=== PATIENT | male | born 1985 | race American Indian/Alaskan Native ===

== ENCOUNTER 2017-01-31 18:43 | Emergency (ER) | payer OTHER ==
[2017-01-31 19:03] VITALS: BP 140/93
--- NOTE | 2017-01-31 19:04 | EDM.PDOC ---
ED HPI GENERAL MEDICAL PROBLEM - General Stated Complaint: BACK PAIN Time Seen by Provider: 01/31/17 18:54 - History of Present Illness INITIAL COMMENTS - FREE TEXT/NARRATIVE: 31-year-old male presents emergency room with low back pain. Patient denies any recent trauma with this point. However patient said that 2-1/ 2 weeks history of worsening low back pain. Patient's saw his chiropractor back in [place] about a week ago had some manipulation done this did not help perhaps made it a little bit worse patient saw another physician here [place] several days ago started on Flexeril 3 times daily and ibuprofen 800 mg 3 times a day this is not offering much relief. Patient denies any pain or discomfort down his legs no loss of bowel or bladder control he's had intermittent back problems in the past. - Related Data Allergies Allergy/AdvReac Type Severity Reaction Status Date / Time No Known Allergies Allergy Verified 01/31/17 18:57 Home Meds: Home Meds LORazepam [Ativan] 1 mg PO Q4H PRN #12 tablet 10/19/15 [Rx] cloNIDine [Catapres] 0.1 mg PO Q8H #9 tablet 10/19/15 [Rx] Prednisone [IMW: Prednisone] 10 mg PO Q12H #39 tab 01/31/17 [Rx] Past Medical History - Past Health History Medical/Surgical History: Denies Medical/Surgical History Psychiatric History: Reports: Addiction Social & Family History - Family History Family Medical History: Noncontributory - Tobacco Use Smoking Status *Q: Current Every Day Smoker Years of Tobacco use: 10 Packs/Tins Daily: 0.5 Used Tobacco, but Quit: No Second Hand Smoke Exposure: No - Alcohol Use Days Per Week of Alcohol Use: 7 Number of Drinks Per Day: 2 Total Drinks Per Week: 14 - Recreational Drug Use Recreational Drug Use: Yes Drug Use in Last 12 Months: Yes Recreational Drug Type: Reports: Ativan, Cocaine, Codiene, Ecstasy, Heroin, Marijuana/Hashish, Opium Recreational Drug Use Frequency: Daily Recreational Drug Last Use: today - Living Situation & Occupation Living situation: Reports: Single Occupation: Employed ED ROS GENERAL - Review of Systems Review Of Systems: See Below Constitutional: Reports: No Symptoms HEENT: Reports: No Symptoms Respiratory: Reports: No Symptoms Cardiovascular: Reports: No Symptoms Endocrine: Reports: No Symptoms GI/Abdominal: Reports: No Symptoms : Reports: No Symptoms Musculoskeletal: Reports: Back Pain ED EXAM, GENERAL - Physical Exam Exam: See Below Exam Limited By: No Limitations General Appearance: Alert, No Apparent Distress Head: Atraumatic, Normocephalic Neck: Normal Inspection, Supple, Non-Tender, Full Range of Motion Respiratory/Chest: No Respiratory Distress, Lungs Clear, Normal Breath Sounds, No Accessory Muscle Use, Chest Non-Tender Cardiovascular: Normal Peripheral Pulses, Regular Rate, Rhythm, No Edema GI/Abdominal: Normal Bowel Sounds, Soft, Non-Tender Back Exam: Normal Inspection, Muscle Spasm (In the lower lumbar areas he has some tenderness and some spasm). No: CVA Tenderness (L), CVA Tenderness (R) Extremities: Other (Straight leg raise is negative until about 70 he has localized pain around the SI joint) Course - Re-Assessments/Exams Free Text/Narrative Re-Assessment/Exam: 01/31/17 19:29 Patient is in agreement to take several days off from work be started on prednisone in place of the ibuprofen. Departure - Departure Time of Disposition: 19:31 Disposition: Home, Self-Care 01 Clinical Impression: Low back pain - Discharge Information Prescriptions: Prednisone [IMW: Prednisone] 10 mg PO Q12H #39 tab Additional Instructions: Return to the emergency room with any questions or problems. Return with any worsening symptoms You been started on prednisone this is to replace the ibuprofen did not take the 2 together. Take the prednisone taper as directed. Continue the Flexeril, or cyclobenzaprine. Take this one every 8 hours while not working and one in the evening on the days you must work. Allow 12 hours after using this medication before driving or returning to work. Take the next 3 or 4 days off from work to give you back a chance to rest. Follow-up in the Hospital clinic later this week for recheck and to consider physical therapy to strengthen your back. [phone]
[2017-01-31] MEDS ORDERED: predniSONE 20 MG Tab PO ONE (19:20)
== END 2017-01-31 19:49 | disposition home or self-care (01) ==
LOC: JD.ED 18:43
DX: M54.5 Low back pain (principal); F17.210 Nicotine dependence, cigarettes, uncomplicated
CPT/HCPCS: 99283; A9270

== ENCOUNTER 2017-03-17 04:31 | Emergency (ER) | payer OTHER ==
[2017-03-17 04:41] VITALS: BP 148/94
[2017-03-17] MEDS ORDERED: Acetaminophen/oxyCODONE 325-5 MG Tab PO ONE (05:11)
[2017-03-17] MEDS ORDERED: predniSONE 20 MG Tab PO ONE (05:12)
[2017-03-17] MEDS ORDERED: Indomethacin 25 MG Cap PO ONE (05:12)
--- NOTE | 2017-03-17 05:19 | EDM.PDOC ---
ED HPI GENERAL MEDICAL PROBLEM - General Chief Complaint: Back Pain or Injury Stated Complaint: BACK PAIN Time Seen by Provider: 03/17/17 05:00 Source of Information: Reports: Patient History Limitations: Reports: No Limitations - History of Present Illness INITIAL COMMENTS - FREE TEXT/NARRATIVE: 31-year-old male attends the ED with complaints of diffuse left lower back pain radiating to his but talk area. States that he has low back pain issues off and on but has flared up over the last 2 days. He's been taking a large amount of Motrin over the last 48 hours without much relief. 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 Denies pain radiating below his buttock into his lower extremities. No problems with bowel or bladder function. He is taking Flexeril and states he did get a little bit asleep but awoke at 2: 30 this morning and is unable to fall back asleep due to the severity of pain in his back. No position is comfortable. 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: Reports: NSAIDS (1 dose of Motrin 800 mg every 4-6 hours.) Lower Back Pain Score (Numeric/FACES): 6 - Related Data Allergies Allergy/AdvReac Type Severity Reaction Status Date / Time No Known Allergies Allergy Verified 01/31/17 18:57 Home Meds: Home Meds Diclofenac Sodium [Voltaren] 50 mg PO TIDMEALS #30 tab.ec 03/17/17 [Rx] oxyCODONE HCl/Acetaminophen [Percocet 5-325 mg Tablet] 1 - 2 each PO Q4H PRN # 20 tablet 03/17/17 [Rx] predniSONE [Deltasone] 20 mg PO ASDIRECTED #18 tablet 03/17/17 [Rx] Past Medical History - Past Health History Medical/Surgical History: Denies Medical/Surgical History Gastrointestinal History: Reports: Other (See Below) Other Gastrointestinal History: gallstones Musculoskeletal History: Reports: Back Pain, Chronic (Intermittent problems with low back pain) Psychiatric History: Reports: Addiction Social & Family History - Family History Family Medical History: Noncontributory - Tobacco Use Smoking Status *Q: Current Every Day Smoker Years of Tobacco use: 10 Packs/Tins Daily: 0.5 Used Tobacco, but Quit: No Second Hand Smoke Exposure: No - Caffeine Use Caffeine Use: Reports: Coffee - Alcohol Use Days Per Week of Alcohol Use: 7 Number of Drinks Per Day: 2 Total Drinks Per Week: 14 - Recreational Drug Use Recreational Drug Use: No Drug Use in Last 12 Months: Yes Recreational Drug Type: Reports: Ativan, Cocaine, Codiene, Ecstasy, Heroin, Marijuana/Hashish, Opium Recreational Drug Use Frequency: Daily Recreational Drug Last Use: today - Living Situation & Occupation Living situation: Reports: Single Occupation: Employed ED ROS GENERAL - Review of Systems Review Of Systems: See Below Constitutional: Reports: Fatigue HEENT: Reports: No Symptoms (From not being able to sleep) Respiratory: Reports: No Symptoms Cardiovascular: Reports: No Symptoms Endocrine: Reports: No Symptoms GI/Abdominal: Reports: No Symptoms : Reports: No Symptoms Musculoskeletal: Reports: Back Pain (Left low back and radiating to the left but talk. No pain rating below the knees.) Skin: Reports: No Symptoms Neurological: Reports: No Symptoms ED EXAM,LOWER BACK PAIN/INJURY - Physical Exam Exam: See Below Exam Limited By: No Limitations General Appearance: Alert, WD/WN, Moderate Distress (Appears to be quite uncomfortable.) Eye Exam: Bilateral Eye: Normal Inspection Respiratory/Chest: No Respiratory Distress, Lungs Clear, Normal Breath Sounds, No Accessory Muscle Use Cardiovascular: Normal Peripheral Pulses, Regular Rate, Rhythm, No Edema, No Gallop, No Murmur GI/Abdominal: Normal Bowel Sounds, Soft, Non-Tender, No Organomegaly Back Exam: Muscle Spasm (Noted left paraspinal muscle spasm from T10-L5. Localized tenderness to L4-L5 and L5-S1 facet joints and marked pain on palpation of the superior sacroiliac joint on the left side. No pain on the right side. 3 leg raising was negative. Dorsiflexion of both great toes is normal.) Extremities: Normal Inspection, Normal Range of Motion, Non-Tender, No Pedal Edema, Normal Capillary Refill Neurological: Normal Mood/Affect, Normal Dorsiflexion, CN II-XII Intact, Normal Plantar Flexion, Normal Reflexes, No Motor/Sensory Deficits, Oriented x 3, Straight Leg Raise (R) (Normal) DTR - Lower Extremities: 1+: Knee (R), Knee (L), Ankle (R), Ankle (L) Psychiatric: Normal Affect, Normal Mood Skin Exam: Warm, Dry, Intact, Normal Color, No Rash Course - Vital Signs Last Recorded V/S: Last Vital Signs Temp 36.7 C 03/17/17 04:38 Pulse 63 03/17/17 04:38 Resp 16 03/17/17 04:38 BP 148/94 H 03/17/17 04:38 Pulse Ox 100 03/17/17 04:38 - Orders/Labs/Meds Meds: Medications Discontinued Medications Generic Name Dose Route Start Last Admin Trade Name Hayden PRN Reason Stop Dose Admin Indomethacin 50 mg 03/17/17 05:12 03/17/17 05:27 Indocin PO 03/17/17 05:13 50 mg ONETIME ONE Administration Oxycodone/Acetaminophen 2 tab 03/17/17 05:11 03/17/17 05:26 Percocet 325-5 Mg PO 03/17/17 05:12 2 tab ONETIME ONE Administration Prednisone 30 mg 03/17/17 05:12 03/17/17 05:26 Prednisone PO 03/17/17 05:13 30 mg ONETIME ONE Administration - Radiology Interpretation Free Text/Narrative:: 31-year-old male attends the ED with acute left lower back pain radiating to the left buttock.. Examination reveals left-sided paraspinal muscle spasm with maximal point of tenderness over L4-L5 and L5-S1 facet joints on the left side and the superior half of the left sacroiliac joint. 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 There is more weight placement on the right side of his belt causing a imbalance chronically straining his SI joint. Patient will seek chiropractic manipulation later today. In the meantime I place him on Voltaren 50 mg 3 times daily for the next 10 days. Advised GI protection with Prilosec 20 mg once daily while on this medication. Also will be on prednisone 20 mg with breakfast and supper for 6 days then 1 tablet in the morning only for another 6 days. Script for Percocet 5 /325mg x 20 tabs given for night time use . He will give some consideration about trying to do his work without a total belt for a period of time. Departure - Departure Time of Disposition: 05:13 Disposition: Home, Self-Care 01 Condition: Fair Clinical Impression: Sacroiliitis, Mechanical low back pain Clinical Impression: (Ruled Out): Sciatica - Discharge Information Prescriptions: Diclofenac Sodium [Voltaren] 50 mg PO TIDMEALS #30 tab.ec oxyCODONE HCl/Acetaminophen [Percocet 5-325 mg Tablet] 1 - 2 each PO Q4H PRN # 20 tablet PRN Reason: pain relief. predniSONE [Deltasone] 20 mg PO ASDIRECTED #18 tablet Referrals: PCP,None [Primary Care Provider] - Forms: ED Department Discharge Additional Instructions: Evaluation the emergency room today in regards to flareup of chronic low back pain. No radiculopathy or pain radiating down the legs only into the but talk on the left side. Examination reveals no evidence of nerve root entrapment or sciatica. On examination there is left-sided paraspinal muscle spasm that starts at thoracic tendon travels all the way to lumbar 5. There is also significant inflammation of the superior half of your left sacroiliac joint. 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 This often places you off balance with more workload on one side versus the other. Suggest having a look at your work belt to possibly reduce the amount of weight you have to carry etc. In the meantime I would suggest follow-up with chiropractor suggest trying Sha at [address] [place] [phone].primarily to have the urinary SI joints realigned. In the meantime suggest use of Voltaren anti-inflammatory tablet 3 times daily for the next 10 days and Deltasone 20 mg with breakfast and supper for 6 days and then 1 tab in the morning only for further 6 days to reduce pain and inflammation. Percocet tablets 5/3/25 milligrams tablets should be reserved for nighttime use when you're not operating a vehicle or machinery. It is to relieve pain so that she were able to sleep better until this problem settles down.
== END 2017-03-17 05:30 | disposition home or self-care (01) ==
LOC: JD.ED 04:31
DX: M46.1 Sacroiliitis, not elsewhere classified (principal); F17.210 Nicotine dependence, cigarettes, uncomplicated
CPT/HCPCS: 99283; A9270

== ENCOUNTER 2017-03-22 16:35 | Emergency (ER) | payer OTHER ==
[2017-03-22 17:05] VITALS: BP 148/98
--- NOTE | 2017-03-22 18:14 | EDM.PDOC ---
ED HPI GENERAL MEDICAL PROBLEM - General Chief Complaint: Back Pain or Injury Stated Complaint: BACK PAIN Time Seen by Provider: 03/22/17 17:49 Source of Information: Reports: Patient, RN Notes Reviewed - History of Present Illness INITIAL COMMENTS - FREE TEXT/NARRATIVE: 31-year-old male comes in with left low back pain. He states he is been having this for about 2 months. He has had this evaluated on at least a couple of prior occasions. Before meals is seen a chiropractor without meaningful relief. He was evaluated here in the ED 6 days ago. Run out of his Percocet. Primarily why he is here today. He states nothing is really changed. 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 The pain does not radiate down into the leg. No fever chills nausea vomiting or voiding symptomatology. Left Lower Back Pain Score (Numeric/FACES): 5 - Related Data Allergies Allergy/AdvReac Type Severity Reaction Status Date / Time No Known Allergies Allergy Verified 01/31/17 18:57 Home Meds: Home Meds Diclofenac Sodium [Voltaren] 50 mg PO TIDMEALS #30 tab.ec 03/17/17 [Rx] oxyCODONE HCl/Acetaminophen [Percocet 5-325 mg Tablet] 1 - 2 each PO Q4H PRN # 20 tablet 03/17/17 [Rx] predniSONE [Deltasone] 20 mg PO ASDIRECTED #18 tablet 03/17/17 [Rx] Cyclobenzaprine [Flexeril] 10 mg PO BEDTIME PRN #10 tablet 03/22/17 [Rx] Diclofenac Sodium [Voltaren] 50 mg PO TIDMEALS #20 tab.ec 03/22/17 [Rx] oxyCODONE HCl/Acetaminophen [Percocet 5-325 mg Tablet] 1 each PO ASDIRECTED PRN #10 tablet 03/22/17 [Rx] Past Medical History - Past Health History Medical/Surgical History: Denies Medical/Surgical History Gastrointestinal History: Reports: Other (See Below) Other Gastrointestinal History: gallstones Musculoskeletal History: Reports: Back Pain, Chronic Psychiatric History: Reports: Addiction Social & Family History - Family History Family Medical History: Noncontributory - Tobacco Use Smoking Status *Q: Current Every Day Smoker Years of Tobacco use: 10 Packs/Tins Daily: 0.3 Used Tobacco, but Quit: No Second Hand Smoke Exposure: No - Caffeine Use Caffeine Use: Reports: Coffee, Energy Drinks, Soda - Alcohol Use Days Per Week of Alcohol Use: 7 Number of Drinks Per Day: 2 Total Drinks Per Week: 14 - Recreational Drug Use Recreational Drug Use: No Drug Use in Last 12 Months: Yes Recreational Drug Type: Reports: Ativan, Cocaine, Codiene, Ecstasy, Heroin, Marijuana/Hashish, Opium Recreational Drug Use Frequency: Daily Recreational Drug Last Use: today - Living Situation & Occupation Living situation: Reports: Single Occupation: Employed ED ROS GENERAL - Review of Systems Review Of Systems: See Below Constitutional: Denies: Fever, Chills, Diaphoresis HEENT: Reports: No Symptoms Respiratory: Denies: Shortness of Breath Cardiovascular: Denies: Chest Pain GI/Abdominal: Denies: Abdominal Pain, Nausea, Vomiting : Reports: No Symptoms Musculoskeletal: Reports: Back Pain. Denies: Leg Pain Skin: Reports: No Symptoms Neurological: Denies: Numbness, Tingling ED EXAM,LOWER BACK PAIN/INJURY - Physical Exam Exam: See Below General Appearance: Alert, Moderate Distress Throat/Mouth: Normal Inspection Head: Atraumatic. No: Facial Swelling Neck: Supple, Full Range of Motion Respiratory/Chest: No Respiratory Distress, Lungs Clear, Normal Breath Sounds Cardiovascular: Regular Rate, Rhythm GI/Abdominal: Soft, Non-Tender. No: Guarding Back Exam: Paraspinal Tenderness. No: CVA Tenderness (L), CVA Tenderness (R) Extremities: Normal Inspection (Left low back), Normal Range of Motion, Other ( No pain with straight leg raising) Neurological: Alert, No Motor/Sensory Deficits Skin Exam: Warm, Dry, Intact, Normal Color Course - Vital Signs Last Recorded V/S: Last Vital Signs Temp 98.4 F 03/22/17 17:02 Pulse 61 03/22/17 17:02 Resp 20 03/22/17 17:02 BP 148/98 H 03/22/17 17:02 Pulse Ox 97 03/22/17 17:02 Departure - Departure Time of Disposition: 18:21 Disposition: Home, Self-Care 01 Condition: Fair Clinical Impression: Back pain Qualifiers: Back pain location: low back pain Chronicity: acute Back pain laterality: left Sciatica presence: without sciatica Qualified Code(s): M54.5 - Low back pain - Discharge Information Prescriptions: Cyclobenzaprine [Flexeril] 10 mg PO BEDTIME PRN #10 tablet PRN Reason: Pain Diclofenac Sodium [Voltaren] 50 mg PO TIDMEALS #20 tab.ec oxyCODONE HCl/Acetaminophen [Percocet 5-325 mg Tablet] 1 each PO ASDIRECTED PRN #10 tablet PRN Reason: Pain Instructions: Back Pain, Adult Referrals: PCP,None [Primary Care Provider] - Forms: ED Department Discharge Additional Instructions: continue voltarin 50 mg 3 times daily, continue prednisone as previously prescribed. percocet at night for severe pain as needed, you may safely take tramadol during the day time up to 3 times daily as long as that is not making you drowsy. You may also take flexeril (muscle relaxant at night to help you sleep). Do no drive or work when taking oxycodone or flexeril. Follow up clinic next week for recheck, continued treatment as needed, call [phone] for appointment.
== END 2017-03-22 18:40 | disposition home or self-care (01) ==
LOC: JD.ED 16:35
DX: M54.5 Low back pain (principal); F17.210 Nicotine dependence, cigarettes, uncomplicated; Z79.899 Other long term (current) drug therapy
CPT/HCPCS: 99283

== ENCOUNTER 2019-07-22 11:09 | Emergency (ER) | payer BC, OTHER ==
[2019-07-22 11:28] VITALS: BP 163/95; PULSE 83
--- NOTE | 2019-07-22 13:37 | CR ---
Chest: Two views of the chest were obtained. Comparison: Prior chest x-ray of 02/19/14. Heart size and mediastinum are normal. Lungs are clear. Bony structures are unremarkable. Pressure: 1. Nothing acute is appreciated on two-view chest x-ray. Diagnostic code #1 This report was dictated in [place] Standard Time
--- NOTE | 2019-07-22 14:35 | EDM.PDOC ---
ED HPI GENERAL MEDICAL PROBLEM - General Chief Complaint: Cardiovascular Problem Stated Complaint: HIGH BP Time Seen by Provider: 07/22/19 11:40 Source of Information: Reports: Patient, Family History Limitations: Reports: No Limitations - History of Present Illness INITIAL COMMENTS - FREE TEXT/NARRATIVE: The patient was sent over from the walk in clinic at [place] for hypertension. The patient has had trouble with sleep for over 2 months. He says the lack of sleep started with some leg pain at night. He also would feel like his heart was racing at times. He did see his doctor and she ordered a sleep study that he did not fill out the paper work for yet. She also did an EKG and a holter monitor and labs. This all looked good. He does snore when he does sleep. His says he does not quit breathing. He did not sleep all night and this morning he did get an hour and when he woke up he felt like his veins in his neck were going to pop and that he was going to . He did have a headache last week and had a CT done and it showed sinusitis. He is on antibiotics now. He has no chest pain, shortness of breath, abdominal pain, nausea or vomiting. He does not drink much and he does not do any drugs. Onset: Gradual Duration: Hour(s): Severity: Moderate Improves with: Reports: None Worsens with: Reports: None Associated Symptoms: Reports: No Other Symptoms - Related Data Allergies Allergy/AdvReac Type Severity Reaction Status Date / Time No Known Allergies Allergy Verified 07/22/19 11:28 Home Meds: Home Meds Amoxicillin/Potassium Clav [Augmentin 875-125 Tablet] 1 each PO BID 07/22/19 [ History] LORazepam [Ativan] 1 mg PO BEDTIME PRN #20 tablet 07/22/19 [Rx] Past Medical History - Past Health History Medical/Surgical History: Denies Medical/Surgical History HEENT History: Reports: None Cardiovascular History: Reports: Hypertension Respiratory History: Reports: None Gastrointestinal History: Reports: Other (See Below) Other Gastrointestinal History: gallstones Genitourinary History: Reports: None Musculoskeletal History: Reports: Back Pain, Chronic Neurological History: Reports: None Psychiatric History: Reports: Addiction Endocrine/Metabolic History: Reports: None Hematologic History: Reports: None Immunologic History: Reports: None Oncologic (Cancer) History: Reports: None Dermatologic History: Reports: None - Infectious Disease History Infectious Disease History: Reports: None Social & Family History - Family History Family Medical History: Noncontributory - Caffeine Use Caffeine Use: Reports: Energy Drinks - Recreational Drug Use Recreational Drug Use: No - Living Situation & Occupation Living situation: Reports: Single Occupation: Employed ED ROS GENERAL - Review of Systems Review Of Systems: See Below Constitutional: Reports: No Symptoms HEENT: Reports: No Symptoms Respiratory: Reports: No Symptoms Cardiovascular: Reports: No Symptoms Endocrine: Reports: No Symptoms GI/Abdominal: Reports: No Symptoms : Reports: No Symptoms Musculoskeletal: Reports: No Symptoms Skin: Reports: No Symptoms Neurological: Reports: No Symptoms ED EXAM, GENERAL - Physical Exam Exam: See Below Exam Limited By: No Limitations General Appearance: Alert, No Apparent Distress Ears: Normal External Exam Nose: Normal Inspection Head: Atraumatic, Normocephalic Neck: Normal Inspection Respiratory/Chest: No Respiratory Distress, Lungs Clear, Normal Breath Sounds Cardiovascular: Regular Rate, Rhythm, No Edema, No Murmur GI/Abdominal: Soft, Non-Tender, No Organomegaly, No Mass Back Exam: Normal Inspection Extremities: Normal Inspection EKG INTERPRETATION EKG Date: 07/22/19 Time: 12:41 Rhythm: NSR Rate (Beats/Min): 66 Herod: Normal P-Wave: Present QRS: Normal ST-T: Normal QT: Normal Course - Vital Signs Last Recorded V/S: Last Vital Signs Temp 97.4 F 07/22/19 11:24 Pulse 83 07/22/19 11:24 Resp 16 07/22/19 11:24 BP 163/95 H 07/22/19 11:24 Pulse Ox 100 07/22/19 11:24 - Orders/Labs/Meds Orders: Active Orders 24 hr Category Date Time Status Cardiac Monitoring [RC] . DIRECTED Care 07/22/19 12:10 Active EKG Documentation Completion [RC] STAT Care 07/22/19 12:11 Active LUCY W/REFLEX [REF] Stat Lab 07/22/19 12:23 Received TSH [CHEM] Stat Lab 07/22/19 12:23 Received Labs: Laboratory Tests 07/22/19 07/22/19 07/22/19 Range/Units 12:23 12:23 12:23 WBC 5.89 (4.23-9.07) K/mm3 RBC 5.14 (4.63-6.08) M/mm3 Hgb 14.9 (13.7-17.5) gm/dl Hct 42.4 (40.1-51.0) % MCV 82.5 (79.0-92.2) fl MCH 29.0 (25.7-32.2) pg MCHC 35.1 (32.2-35.5) g/dl RDW Std Deviation 38.8 (35.1-43.9) fL Plt Count 176 (163-337) K/mm3 MPV 11.2 (9.4-12.3) fl Neut % (Auto) 68.2 H (34.0-67.9) % Lymph % (Auto) 23.3 (21.8-53.1) % [place] % (Auto) 7.3 (5.3-12.2) % Eos % (Auto) 0 L (0.8-7.0) Baso % (Auto) 1.0 (0.1-1.2) % Neut # (Auto) 4.02 (1.78-5.38) K/mm3 Lymph # (Auto) 1.37 (1.32-3.57) K/mm3 [place] # (Auto) 0.43 (0.30-0.82) K/mm3 Eos # (Auto) 0.00 L (0.04-0.54) K/mm3 Baso # (Auto) 0.06 (0.01-0.08) K/mm3 ESR (0-15) mm/hr D-Dimer, Quantitative < 0.19 L (0.19-0.50) mg/L Sodium 144 (136-145) mEq/L Potassium 4.2 (3.5-5.1) mEq/L Chloride 107 (98-107) mEq/L Carbon Dioxide 28 (21-32) mEq/L Anion Gap 13.2 (5-15) BUN 11 (7-18) mg/dL Creatinine 1.0 (0.7-1.3) mg/dL Est Cr Clr Drug Dosing 109.50 mL/min Estimated GFR (MDRD) > 60 (>60) mL/min BUN/Creatinine Ratio 11.0 L (14-18) Glucose 105 (74-106) mg/dL Calcium 9.0 (8.5-10.1) mg/dL Magnesium 1.8 (1.8-2.4) mg/dl Total Bilirubin 0.3 (0.2-1.0) mg/dL AST 24 (15-37) U/L ALT 26 (16-63) U/L Alkaline Phosphatase 79 (46-116) U/L Troponin I < 0.017 (0.00-0.056) ng/mL C-Reactive Protein < 0.2 (<1.0) mg/dL Total Protein 7.6 (6.4-8.2) g/dl Albumin 4.5 (3.4-5.0) g/dl Globulin 3.1 gm/dL Albumin/Globulin Ratio 1.5 (1-2) Urine Opiates Screen (IPVSQX=357) Ur Buprenorphine Scrn (CUTOFF=10) Ur Oxycodone Screen (ORY3BI=744) Urine Methadone Screen (DLT4NB=132) Ur Propoxyphene Screen (NSWFVE=553) Ur Barbiturates Screen (JYCAOS=602) Ur Tricyclics Screen (HPLLHH=321) Ur Phencyclidine Scrn (CUTOFF=25) Ur Amphetamine Screen (BCFKQA=559) U Methamphetamines Scrn (XDDCKU=870) U Benzodiazepines Scrn (XFUNDA=597) U Cocaine Metab Screen (FPTYFE=149) U Marijuana (THC) Screen (CUTOFF=50) Rheumatoid Factor Scrn (NEGATIVE) 07/22/19 07/22/19 07/22/19 Range/Units 12:23 12:23 13:06 WBC (4.23-9.07) K/mm3 RBC (4.63-6.08) M/mm3 Hgb (13.7-17.5) gm/dl Hct (40.1-51.0) % MCV (79.0-92.2) fl MCH (25.7-32.2) pg MCHC (32.2-35.5) g/dl RDW Std Deviation (35.1-43.9) fL Plt Count (163-337) K/mm3 MPV (9.4-12.3) fl Neut % (Auto) (34.0-67.9) % Lymph % (Auto) (21.8-53.1) % [place] % (Auto) (5.3-12.2) % Eos % (Auto) (0.8-7.0) Baso % (Auto) (0.1-1.2) % Neut # (Auto) (1.78-5.38) K/mm3 Lymph # (Auto) (1.32-3.57) K/mm3 [place] # (Auto) (0.30-0.82) K/mm3 Eos # (Auto) (0.04-0.54) K/mm3 Baso # (Auto) (0.01-0.08) K/mm3 ESR 9 (0-15) mm/hr D-Dimer, Quantitative (0.19-0.50) mg/L Sodium (136-145) mEq/L Potassium (3.5-5.1) mEq/L Chloride (98-107) mEq/L Carbon Dioxide (21-32) mEq/L Anion Gap (5-15) BUN (7-18) mg/dL Creatinine (0.7-1.3) mg/dL Est Cr Clr Drug Dosing mL/min Estimated GFR (MDRD) (>60) mL/min BUN/Creatinine Ratio (14-18) Glucose (74-106) mg/dL Calcium (8.5-10.1) mg/dL Magnesium (1.8-2.4) mg/dl Total Bilirubin (0.2-1.0) mg/dL AST (15-37) U/L ALT (16-63) U/L Alkaline Phosphatase (46-116) U/L Troponin I (0.00-0.056) ng/mL C-Reactive Protein (<1.0) mg/dL Total Protein (6.4-8.2) g/dl Albumin (3.4-5.0) g/dl Globulin gm/dL Albumin/Globulin Ratio (1-2) Urine Opiates Screen Negative (EAPQPO=581) Ur Buprenorphine Scrn Negative (CUTOFF=10) Ur Oxycodone Screen Negative (FKU4GJ=933) Urine Methadone Screen Negative (EKQ7XQ=930) Ur Propoxyphene Screen Negative (ECAPVY=742) Ur Barbiturates Screen Negative (JLMYCI=683) Ur Tricyclics Screen Negative (ZVEDOB=179) Ur Phencyclidine Scrn Negative (CUTOFF=25) Ur Amphetamine Screen Negative (HEXRJR=044) U Methamphetamines Scrn Negative (UPYACL=064) U Benzodiazepines Scrn Negative (NEKLTT=951) U Cocaine Metab Screen Negative (AFDFII=988) U Marijuana (THC) Screen Negative (CUTOFF=50) Rheumatoid Factor Scrn Negative (NEGATIVE) - Re-Assessments/Exams Free Text/Narrative Re-Assessment/Exam: 07/22/19 14:37 I ordered labs, EKG and a CXR. His EKG shows a NSR with no acute changes. His CBC and CMP look good. His ESR, CRP, D-dimer, troponin, rheumatoid factor were all normal. His UDS is negative. I did add a TSH. I feel all his problems may be related to lack of sleep. I will give him some ativan for that and he is to get a sleep study. Departure - Departure Time of Disposition: 14:40 Disposition: Home, Self-Care 01 Condition: Good Clinical Impression: Insomnia Qualifiers: Insomnia type: unspecified Qualified Code(s): G47.00 - Insomnia, unspecified Prescriptions: LORazepam [Ativan] 1 mg PO BEDTIME PRN #20 tablet PRN Reason: Sleep Referrals: Joselyn Gu LABELS MOLDER [Primary Care Provider] - 2 Weeks Forms: ED Department Discharge Additional Instructions: Take the ativan as needed for sleep. Practice good sleep by keeping it dark in the room and use some white noise as needed. Follow up with Joselyn or Antonina Gibbs. Please return if you are worse. Sepsis Event Note - Evaluation Sepsis Screening Result: No Definite Risk - Focused Exam Vital Signs: Vital Signs Temp Pulse Resp BP Pulse Ox 07/22/19 11:24 97.4 F 83 16 163/95 H 100 Date Exam was Performed: 07/22/19 Time Exam was Performed: 14:36 - My Orders Last 24 Hours: My Active Orders 07/22/19 12:10 Cardiac Monitoring [RC] . DIRECTED 07/22/19 12:11 EKG Documentation Completion [RC] STAT 07/22/19 12:23 LUCY W/REFLEX [REF] Stat TSH [CHEM] Stat - Assessment/Plan Last 24 Hours: My Active Orders 07/22/19 12:10 Cardiac Monitoring [RC] . DIRECTED 07/22/19 12:11 EKG Documentation Completion [RC] STAT 07/22/19 12:23 LUCY W/REFLEX [REF] Stat TSH [CHEM] Stat
== END 2019-07-22 15:13 | disposition home or self-care (01) ==
LOC: JD.ED 11:09
DX: G47.00 Insomnia, unspecified (principal); I10 Essential (primary) hypertension
CPT/HCPCS: 36415; 71046; 71046-26; 80053; 80306; 83735; 84443; 84484; 85025; 85379; 85652; 86038; 86140; 86430; 93005; 93010; 99283; 99284-25

== ENCOUNTER 2019-08-02 06:03 | Emergency (ER) | payer BC ==
[2019-08-02 06:32] VITALS: BP 142/86; PULSE 88
--- NOTE | 2019-08-02 06:33 | EDM.PDOC ---
ED HPI GENERAL MEDICAL PROBLEM - General Chief Complaint: General Stated Complaint: BLOOD PRESSURE PROBLEMS Time Seen by Provider: 08/02/19 06:33 - History of Present Illness INITIAL COMMENTS - FREE TEXT/NARRATIVE: 34-year-old male presents the emergency room to get some lab results. Patient was seen here on the and some of his labs were sent out. The patient is still having problems with some insomnia. He was given Ativan at that visit but does not like to take it because of potential dependency issues. He has no other complaints at this time. Talking to this patient it sounds like he has a lot of anxiety. Albeit he says he is not stressing over much. - Related Data Allergies Allergy/AdvReac Type Severity Reaction Status Date / Time No Known Allergies Allergy Verified 08/02/19 06:28 Home Meds: Home Meds LORazepam [Ativan] 1 mg PO BEDTIME PRN #20 tablet 07/22/19 [Rx] Past Medical History - Past Health History Medical/Surgical History: Denies Medical/Surgical History HEENT History: Reports: None Cardiovascular History: Reports: Hypertension Respiratory History: Reports: None Gastrointestinal History: Reports: Other (See Below) Other Gastrointestinal History: gallstones Genitourinary History: Reports: None Musculoskeletal History: Reports: Back Pain, Chronic Neurological History: Reports: None Psychiatric History: Reports: Addiction Endocrine/Metabolic History: Reports: None Hematologic History: Reports: None Immunologic History: Reports: None Oncologic (Cancer) History: Reports: None Dermatologic History: Reports: None - Infectious Disease History Infectious Disease History: Reports: None Social & Family History - Family History Family Medical History: Noncontributory - Caffeine Use Caffeine Use: Reports: Energy Drinks - Living Situation & Occupation Living situation: Reports: Single Occupation: Employed ED ROS GENERAL - Review of Systems Review Of Systems: See Below Constitutional: Denies: Fever, Chills Respiratory: Reports: No Symptoms Cardiovascular: Reports: No Symptoms GI/Abdominal: Reports: No Symptoms ED EXAM, GENERAL - Physical Exam Exam: See Below Exam Limited By: No Limitations General Appearance: Alert, Anxious (Mildly so) Respiratory/Chest: No Respiratory Distress, Lungs Clear, Normal Breath Sounds Cardiovascular: Regular Rate, Rhythm, No Edema, No Murmur Psychiatric: Anxious (Patient has problems staying on task with answering questions) Course - Vital Signs Last Recorded V/S: Last Vital Signs Temp 36.9 C 08/02/19 06:29 Pulse 88 08/02/19 06:29 Resp 16 08/02/19 06:29 BP 142/86 H 08/02/19 06:29 Pulse Ox 100 08/02/19 06:29 - Re-Assessments/Exams Free Text/Narrative Re-Assessment/Exam: 08/02/19 06:54 I have reviewed his lab work from the last visit and anything else that may have come in since that time and the only thing I can find is a rheumatoid factor and LUCY both of which were negative I have recommended to the patient that he follow-up at the hospital clinic and see if he can get his psychiatric, telemedicine or otherwise appointment to discuss his anxiety issues. Departure - Departure Time of Disposition: 07:00 Disposition: Home, Self-Care 01 Clinical Impression: Anxiety, Follow up - Discharge Information Referrals: Joselyn Gu NP [Primary Care Provider] - Forms: ED Department Discharge Additional Instructions: Follow-up with the hospital clinic and see if they can get you into see 1 of the psychiatric physicians for an appointment here or tele-medical evaluation. Also see if they can establish you with a primary care provider. [phone] Sepsis Event Note - Focused Exam Vital Signs: Vital Signs Temp Pulse Resp BP Pulse Ox 08/02/19 06:29 36.9 C 88 16 142/86 H 100 Date Exam was Performed: 08/02/19 Time Exam was Performed: 06:49
== END 2019-08-02 07:52 | disposition home or self-care (01) ==
LOC: JD.ED 06:03
DX: F41.9 Anxiety disorder, unspecified (principal); I10 Essential (primary) hypertension; Z79.899 Other long term (current) drug therapy
CPT/HCPCS: 99281; 99283

== ENCOUNTER 2019-08-06 03:59 | Emergency (ER) | payer BC ==
[2019-08-06 04:11] VITALS: BP 147/93; PULSE 83
--- NOTE | 2019-08-06 04:56 | EDM.PDOC ---
ED HPI GENERAL MEDICAL PROBLEM - General Chief Complaint: Chest Pain Stated Complaint: CHEST PAIN/LEFT ARM NUMB Time Seen by Provider: 08/06/19 04:21 Source of Information: Reports: Patient, Significant Other (Fiance) History Limitations: Reports: No Limitations - History of Present Illness INITIAL COMMENTS - FREE TEXT/NARRATIVE: Mr. Gonzalez is a very pleasant 34-year-old man with a past medical history significant for untreated anxiety and insomnia, who has been to this emergency department on numerous occasions with concerns about elevated blood pressure, insomnia, chest pain, and anxiety. He has had numerous workups, including cardiac workups, all of which have been negative. He now presents to the ED telling the triage nurse that he has had chest pain for the past 2 months, and would like some answers as to the cause. He reported to me that he is here to discuss prior test results. On closer questioning, the patient acknowledged that he was feeling anxious earlier tonight, and could not sleep despite taking 2 doses of a quarter tablet of Ativan 1 mg. No recent illness, such as fever, chills, cough, nausea, vomiting, constipation, diarrhea, abdominal pain, urinary symptoms, recent weight gain or weight loss, recent bloody bowel movements or black bowel movements, recent joint aches, headaches, or rashes. The patient's PCP is Africa Gibbs NP. He last saw her about a month ago, and does not currently have an appointment to see her again. The patient reports that he has an appointment to see someone - he does not know who - at [facility] today. Left Chest Pain Score (Numeric/FACES): 1 - Related Data Allergies Allergy/AdvReac Type Severity Reaction Status Date / Time No Known Allergies Allergy Verified 08/06/19 04:11 Home Meds: Home Meds LORazepam [Ativan] 1 mg PO BEDTIME PRN #20 tablet 07/22/19 [Rx] Dextroamphetamine/Amphetamine [Adderall 20 mg Tablet] 20 mg PO DAILY 08/06/19 [ History] Escitalopram [Lexapro] 10 mg PO DAILY #14 tab 08/06/19 [Rx] Past Medical History Psychiatric History: Reports: Anxiety ( untreated), Other (See Below) (Insomnia) Social & Family History - Family History Family Medical History: Noncontributory - Tobacco Use Smoking Status *Q: Former Smoker Tobacco Use Within Last Twelve Months: Vaping (nicotine) Years of Tobacco use: 16 Packs/Tins Daily: 0.4 Month/Year Tobacco Last Used: Quit 2017 - Caffeine Use Caffeine Use: Reports: Energy Drinks - Alcohol Use Alcohol Use History: Yes Date/Time of Last Drink Comment: None since 2016 - Recreational Drug Use Recreational Drug Use: Yes Drug Use in Last 12 Months: No Recreational Drug Type: Reports: Cocaine (last snorted 2008), Ecstasy (last took 2004), Heroin (last smoked 2008), Marijuana/Hashish (last smoked 2009), Psilocybin (Mushrooms) (last took 2008), Other (see below) (Peyote - last took 2011) - Living Situation & Occupation Living situation: Reports: Single, with Significant Other (Fiance) Occupation: Employed ([employer]) ED ROS GENERAL - Review of Systems Review Of Systems: Comprehensive ROS is negative, except as noted in HPI. ED EXAM, GENERAL - Physical Exam Exam: See Below Exam Limited By: No Limitations General Appearance: Alert, WD/WN, No Apparent Distress, Anxious Eye Exam: Bilateral Eye: EOMI, Normal Inspection Ears: Normal External Exam, Hearing Grossly Normal Nose: Normal Inspection Throat/Mouth: Normal Inspection, Normal Lips, Normal Voice, No Airway Compromise Head: Atraumatic, Normocephalic Neck: Normal Inspection, Full Range of Motion Respiratory/Chest: No Respiratory Distress, Lungs Clear, Normal Breath Sounds, No Accessory Muscle Use Cardiovascular: Normal Peripheral Pulses, Regular Rate, Rhythm, No Edema, No Gallop, No JVD, No Murmur, No Rub Peripheral Pulses: 4+: Radial (L), Radial (R) GI/Abdominal: Normal Bowel Sounds, Soft, Non-Tender, No Organomegaly, No Distention, No Abnormal Bruit, No Mass (Male) Exam: Deferred Rectal (Males) Exam: Deferred Back Exam: Normal Inspection, Full Range of Motion, NT Extremities: Normal Inspection, Normal Range of Motion, No Pedal Edema, Normal Capillary Refill Neurological: Alert, Oriented, Normal Cognition, No Motor/Sensory Deficits Psychiatric: Anxious Skin Exam: Warm, Dry, Intact, Normal Color, No Rash Course - Vital Signs Last Recorded V/S: Last Vital Signs Temp 37.2 C 08/06/19 04:06 Pulse 83 08/06/19 04:06 Resp 15 08/06/19 04:06 BP 147/93 H 08/06/19 04:06 Pulse Ox 96 08/06/19 04:06 - Re-Assessments/Exams Free Text/Narrative Re-Assessment/Exam: 08/06/19 04:51 Very clearly, the patient is suffering from significant anxiety. I very carefully explained to the patient why anxiety causes the symptoms that it does , and the patient expressed gratitude that he now understands. While the patient is currently prescribed Ativan, that is not a good long-term choice, as it merely masks symptoms and has addictive potential. An appropriate choice would be an SSRI. Ordinarily, the emergency department does not prescribe SSRIs , however, in this case, I am willing to make an exception. Most SSRIs take a few weeks before they become effective, however, in some cases, escitalopram ( Lexapro) can take effect within 3 or 4 days, therefore it is a good choice to start with. I will prescribe 10 mg daily, but only a 2 week supply, as the patient has promised that he will follow-up in our clinic within that time. I will refer him to Dr. Underwood, however, I advised him that any of the providers can treat this condition. The patient's fianc stated that the patient will need to see someone who is firm with him - I agree. I explained several times that the patient will need to be patient with this condition, as there are no quick fixes, and the patient expressed understanding. Departure - Departure Time of Disposition: 04:57 Disposition: Home, Self-Care 01 Condition: Good Clinical Impression: Generalized anxiety disorder - Discharge Information *PRESCRIPTION DRUG MONITORING PROGRAM REVIEWED*: Not Applicable *COPY OF PRESCRIPTION DRUG MONITORING REPORT IN PATIENT RUTHY: Not Applicable Referrals: Louise Underwood MD [Physician] - Additional Instructions: You were seen in the emergency room for continued symptoms of anxiety, including tingling, numbness, a burning sensation, and chest pain. Based on your history, including review of prior ER visits, and your physical examination, you are suffering from generalized anxiety disorder. As discussed, there are no quick fixes for generalized anxiety disorder. You will need to be patient. A prescription for the antidepressant/anti-anxiety medicine escitalopram ( Lexapro) has been sent to the [facility] located in the [place]. Take one tablet of escitalopram daily, as prescribed. Follow-up with Dr. Underwood, or one of the other providers in the clinic, at the next available appointment. It is imperative that you follow-up within 2 weeks. In addition to seeing one of the providers in our clinic, you may also see a counselor at [facility]. If any other problems, please do not hesitate to return to the ER. Sepsis Event Note - Evaluation Sepsis Screening Result: No Definite Risk - Focused Exam Vital Signs: Vital Signs Temp Pulse Resp BP Pulse Ox 08/06/19 04:06 37.2 C 83 15 147/93 H 96 Date Exam was Performed: 08/06/19 Time Exam was Performed: 04:51
== END 2019-08-06 05:10 | disposition home or self-care (01) ==
LOC: JD.ED 03:59
DX: F41.1 Generalized anxiety disorder (principal); Z87.891 Personal history of nicotine dependence; Z79.899 Other long term (current) drug therapy
CPT/HCPCS: 99283; 99284

== ENCOUNTER 2019-11-04 02:00 | Emergency (ER) | payer BC | END 2019-11-04 03:31 | disposition left against medical advice (07) | LOC: JD.ED 02:00 | DX: Z53.21 Procedure and treatment not carried out due to patient leaving prior to being seen by health care provider (principal) ==

== ENCOUNTER 2019-11-22 19:40 | Emergency (ER) | payer BC ==
[2019-11-22] MEDS ORDERED: LORazepam 2 MG/ML SDV IVPUSH ONE (20:05)
--- NOTE | 2019-11-22 20:08 | EDM.PDOC ---
ED HPI GENERAL MEDICAL PROBLEM - General Chief Complaint: General Stated Complaint: POSS ANXIETY ATTACK BODY SHAKES BLURRED VISION Time Seen by Provider: 11/22/19 19:47 Source of Information: Reports: Patient History Limitations: Reports: No Limitations - History of Present Illness INITIAL COMMENTS - FREE TEXT/NARRATIVE: This is a 34-year-old male. This evening after he had dinner which included pork, potatoes, cheesy shells and a Coca-Cola with some Doritos prior to this he began to feel somewhat hot and sweaty. [place] dizzy had some blurred vision. [place] shaky and tremor and lightheaded. He came to the ER for evaluation. During this time he was not short of breath he says and he did not have a rapid heart rate. He has noted recently that he has had some elevated blood pressure and when he arrived to the ER his blood pressure was 175/99. He thinks he might be a diabetic but he has no objective evidence at this time to suggest that. He does have a history of anxiety he takes sertraline as well as Ativan. He is also on some Adderall for ADHD. When he came to the ER he appeared to walking by himself with good balance. When the nurse was interviewing him and talking about his symptoms he seemed to get sweaty and he felt little lightheaded. But when I went in to talk to him that those symptoms seemed to resolve. The patient states he stopped his Adderall about 1 month ago because he thought it was affecting his blood pressure. He did take a 0.5 mg of Ativan prior to coming to the ER. - Related Data Allergies Allergy/AdvReac Type Severity Reaction Status Date / Time No Known Allergies Allergy Verified 11/22/19 20:02 Home Meds: Home Meds LORazepam [Ativan] 1 mg PO BEDTIME PRN #20 tablet 07/22/19 [Rx] Dextroamphetamine/Amphetamine [Adderall 20 mg Tablet] 20 mg PO DAILY 08/06/19 [ History] Sertraline HCl 25 mg PO DAILY 11/04/19 [History] Past Medical History - Past Health History Medical/Surgical History: Denies Medical/Surgical History HEENT History: Reports: None Cardiovascular History: Reports: Hypertension Respiratory History: Reports: None Gastrointestinal History: Reports: Other (See Below) Other Gastrointestinal History: gallstones Genitourinary History: Reports: None Musculoskeletal History: Reports: Back Pain, Chronic Neurological History: Reports: None Psychiatric History: Reports: Addiction, Other (See Below) Other Psychiatric History: insomnia Endocrine/Metabolic History: Reports: None Hematologic History: Reports: None Immunologic History: Reports: None Oncologic (Cancer) History: Reports: None Dermatologic History: Reports: None - Infectious Disease History Infectious Disease History: Reports: None Social & Family History - Family History Family Medical History: Noncontributory - Caffeine Use Caffeine Use: Reports: None - Living Situation & Occupation Living situation: Reports: Single 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 Denies: Fever, Chills HEENT: Denies: Rhinitis, Sinus Problem Respiratory: Denies: Shortness of Breath, Cough Cardiovascular: Reports: Blood Pressure Problem. Denies: Chest Pain Endocrine: Reports: Fatigue GI/Abdominal: Reports: No Symptoms : Reports: No Symptoms Musculoskeletal: Reports: No Symptoms Skin: Reports: Diaphoresis Neurological: Reports: Dizziness, Weakness. Denies: Confusion, Headache, Numbness, Paresthesia, Syncope, Tingling Psychiatric: Reports: Anxiety Hematologic/Lymphatic: Reports: No Symptoms ED EXAM, GENERAL - Physical Exam Exam: See Below Exam Limited By: No Limitations General Appearance: Alert, WD/WN, No Apparent Distress, Other (The patient initially was slightly diaphoretic with a blood pressure of 175/99, as his diaphoresis resolved his blood pressure dropped down to 153/95.) Eye Exam: Bilateral Eye: Normal Inspection Ears: Normal External Exam Nose: Normal Inspection Throat/Mouth: Normal Lips, Normal Voice, No Airway Compromise Head: Normocephalic Neck: Supple Respiratory/Chest: No Respiratory Distress, Lungs Clear, Normal Breath Sounds Cardiovascular: Regular Rate, Rhythm, No Murmur GI/Abdominal: Soft, Non-Tender Back Exam: Normal Inspection, Full Range of Motion Extremities: Normal Inspection, Normal Range of Motion Neurological: Alert, Oriented, No Motor/Sensory Deficits. No: Disoriented Psychiatric: Anxious Skin Exam: Warm, Diaphoretic EKG INTERPRETATION EKG Date: 11/22/19 Time: 20:20 EKG Interpretation Comments: EKG shows a sinus rhythm rate of 78. There is no acute ST or T wave changes there is no ischemia noted. He does have a slight interventricular conduction delay noted. Course - Vital Signs Last Recorded V/S: Last Vital Signs Temp 98.6 F 11/22/19 19:55 Pulse 80 11/22/19 19:55 Resp 16 11/22/19 19:55 BP 175/99 H 11/22/19 19:55 Pulse Ox 99 11/22/19 19:55 - Orders/Labs/Meds Orders: Active Orders 24 hr Category Date Time Status Accu Check [Blood Glucose Check, Bedside] [] ONETIME Care 11/22/19 20:04 Active EKG 12 Lead [EKG Documentation Completion] [] STAT Care 11/22/19 20:12 Active Sodium Chloride 0.9% [Normal Saline] 1,000 ml Med 11/22/19 20:15 Active IV ASDIRECTED Medication Orders Sodium Chloride (Normal Saline) 1,000 mls @ 1,000 mls/hr IV ASDIRECTED AMIRAH Last Admin: 11/22/19 20:22 Dose: 1,000 mls/hr Labs: Laboratory Tests 11/22/19 11/22/19 Range/Units 20:21 20:21 WBC 6.86 (4.23-9.07) K/mm3 RBC 4.94 (4.63-6.08) M/mm3 Hgb 14.6 (13.7-17.5) gm/dl Hct 42.3 (40.1-51.0) % MCV 85.6 D (79.0-92.2) fl MCH 29.6 (25.7-32.2) pg MCHC 34.5 (32.2-35.5) g/dl RDW Std Deviation 39.9 (35.1-43.9) fL Plt Count 169 (163-337) K/mm3 MPV 11.6 (9.4-12.3) fl Neut % (Auto) 56.2 (34.0-67.9) % Lymph % (Auto) 36.4 (21.8-53.1) % [place] % (Auto) 7.0 (5.3-12.2) % Eos % (Auto) 0 L (0.8-7.0) Baso % (Auto) 0.4 (0.1-1.2) % Neut # (Auto) 3.85 (1.78-5.38) K/mm3 Lymph # (Auto) 2.50 (1.32-3.57) K/mm3 [place] # (Auto) 0.48 (0.30-0.82) K/mm3 Eos # (Auto) 0.00 L (0.04-0.54) K/mm3 Baso # (Auto) 0.03 (0.01-0.08) K/mm3 Sodium 144 (136-145) mEq/L Potassium 3.5 (3.5-5.1) mEq/L Chloride 104 (98-107) mEq/L Carbon Dioxide 30 (21-32) mEq/L Anion Gap 13.5 (5-15) BUN 13 (7-18) mg/dL Creatinine 1.3 (0.7-1.3) mg/dL Est Cr Clr Drug Dosing 84.23 mL/min Estimated GFR (MDRD) > 60 (>60) mL/min BUN/Creatinine Ratio 10.0 L (14-18) Glucose 197 H (74-106) mg/dL Calcium 8.3 L (8.5-10.1) mg/dL Total Bilirubin 0.3 (0.2-1.0) mg/dL AST 20 (15-37) U/L ALT 18 (16-63) U/L Alkaline Phosphatase 90 (46-116) U/L Troponin I < 0.017 (0.00-0.056) ng/mL Total Protein 7.4 (6.4-8.2) g/dl Albumin 4.4 (3.4-5.0) g/dl Globulin 3.0 gm/dL Albumin/Globulin Ratio 1.5 (1-2) Meds: Medications Generic Name Dose Route Start Last Admin Trade Name Freq PRN Reason Stop Dose Admin Sodium Chloride 1,000 mls @ 1,000 mls/hr 11/22/19 20:15 11/22/19 20:22 Normal Saline IV 1,000 mls/hr ASDIRECTED AMIRAH Administration Discontinued Medications Generic Name Dose Route Start Last Admin Trade Name Freq PRN Reason Stop Dose Admin Lorazepam 1 mg 11/22/19 20:05 11/22/19 20:21 Ativan IVPUSH 11/22/19 20:06 1 mg ONETIME ONE Administration - Re-Assessments/Exams Free Text/Narrative Re-Assessment/Exam: 11/22/19 20:51 Accu-Chek when he arrived to the ER was 126 this was during the time he was having a sweating spell. 11/22/19 20:56 Patient indicates he is feeling better. Pressure is 140/85 now. Pulse is 67. He has a somewhat bland demeanor and a somewhat flat affect. 11/22/19 21:22 I spoke to the patient regarding his test results and they were all normal. His blood sugar was 197 but he had just eaten a meal. I suggested he follow-up with his family doctor to have his blood pressure rechecked and also to get a fasting blood sugar that his doctor can interpret. The patient feels comfortable this and wants to go home. Departure - Departure Time of Disposition: 21:22 Disposition: Home, Self-Care 01 Condition: Good Clinical Impression: Generalized anxiety disorder, Elevated blood pressure reading - Discharge Information *PRESCRIPTION DRUG MONITORING PROGRAM REVIEWED*: Not Applicable *COPY OF PRESCRIPTION DRUG MONITORING REPORT IN PATIENT RUTHY: Not Applicable Instructions: Generalized Anxiety Disorder, Adult, How to Take Your Blood Pressure, [id number] Referrals: Joselyn Gu NP [Primary Care Provider] - Forms: ED Department Discharge Additional Instructions: Continue with your Ativan as needed, you might consider checking your blood pressure at home and keeping track of it and then when you follow-up with your family doctor take that record with you to see if they feel you need to be on medications, also consider getting a fasting blood sugar to make sure that your blood sugars are normal, return to the ER as needed Sepsis Event Note - Focused Exam Vital Signs: Vital Signs Temp Pulse Resp BP Pulse Ox 11/22/19 19:55 98.6 F 80 16 175/99 H 99 Date Exam was Performed: 11/22/19 Time Exam was Performed: 21:21 - My Orders Last 24 Hours: My Active Orders 11/22/19 20:04 Accu Check [Blood Glucose Check, Bedside] [RC] ONETIME 11/22/19 20:12 EKG 12 Lead [EKG Documentation Completion] [RC] STAT 11/22/19 20:15 Sodium Chloride 0.9% [Normal Saline] 1,000 ml IV ASDIRECTED - Assessment/Plan Last 24 Hours: My Active Orders 11/22/19 20:04 Accu Check [Blood Glucose Check, Bedside] [RC] ONETIME 11/22/19 20:12 EKG 12 Lead [EKG Documentation Completion] [RC] STAT 11/22/19 20:15 Sodium Chloride 0.9% [Normal Saline] 1,000 ml IV ASDIRECTED
[2019-11-22] MEDS ORDERED: Sodium Chloride 0.9% 1,000 ML IV SCH (20:15)
[2019-11-22 21:56] VITALS: BP 138/79; PULSE 82
== END 2019-11-22 21:36 | disposition home or self-care (01) ==
LOC: JD.ED 19:40
DX: F41.1 Generalized anxiety disorder (principal); I10 Essential (primary) hypertension; Z79.899 Other long term (current) drug therapy
CPT/HCPCS: 36415; 80053; 82962; 84484; 85025; 93005; 96361; 96374; 99283; J2060; J7030; 93010; 99284

== ENCOUNTER 2019-11-24 04:48 | Emergency (ER) | payer BC ==
--- NOTE | 2019-11-24 04:58 | EDM.PDOC ---
ED HPI GENERAL MEDICAL PROBLEM - General Chief Complaint: General Stated Complaint: [facility] Time Seen by Provider: 11/24/19 04:50 Source of Information: Reports: Patient History Limitations: Reports: No Limitations - History of Present Illness INITIAL COMMENTS - FREE TEXT/NARRATIVE: This is a 34-year-old male that we saw earlier this weekend they because he was laying in bed and felt lightheaded and felt shaky and then he fell as he was drifting off to sleep he felt a sudden thump in his chest and it made him afraid and he comes to the ER for evaluation. Originally when the ambulance was called he told him he was having stroke symptoms but when the ambulance arrived he was complaining of a lump or bump in his chest. He says now he feels okay his blood pressure is 146/93. He does asked to be tested for the coronavirus however he has absolutely no symptoms suggestive of a coronavirus so I told him we will not test him today. He does have a history of anxiety problems. He has been in the ER multiple times due to various complaints including chest pain, anxiety, back pain and strokelike symptoms. He denies sore throat, no fever no chills, no nausea vomiting or diarrhea. When he was here on the his CBC was normal his CMP was normal troponin was negative his glucose was mildly elevated at 197 but he had just eaten dinner. - Related Data Allergies Allergy/AdvReac Type Severity Reaction Status Date / Time No Known Allergies Allergy Verified 11/24/19 04:56 Home Meds: Home Meds Dextroamphetamine/Amphetamine [Adderall 20 mg Tablet] 20 mg PO DAILY 08/06/19 [ History] Sertraline HCl 150 mg PO DAILY 11/04/19 [History] LORazepam [Ativan] 1 mg PO BEDTIME PRN 11/24/19 [History] Past Medical History - Past Health History Medical/Surgical History: Denies Medical/Surgical History HEENT History: Reports: None Cardiovascular History: Reports: Hypertension Respiratory History: Reports: None Gastrointestinal History: Reports: Other (See Below) Other Gastrointestinal History: gallstones Genitourinary History: Reports: None Musculoskeletal History: Reports: Back Pain, Chronic Neurological History: Reports: None Psychiatric History: Reports: Addiction, Other (See Below) Other Psychiatric History: insomnia Endocrine/Metabolic History: Reports: None Hematologic History: Reports: None Immunologic History: Reports: None Oncologic (Cancer) History: Reports: None Dermatologic History: Reports: None - Infectious Disease History Infectious Disease History: Reports: None Social & Family History - Family History Family Medical History: Noncontributory - Caffeine Use Caffeine Use: Reports: None - Living Situation & Occupation Living situation: Reports: Single 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 Denies: Fever, Chills HEENT: Reports: No Symptoms Respiratory: Denies: Shortness of Breath, Cough Cardiovascular: Reports: Chest Pain, Lightheadedness Endocrine: Reports: No Symptoms GI/Abdominal: Reports: No Symptoms : Reports: No Symptoms Musculoskeletal: Reports: No Symptoms Skin: Reports: No Symptoms Neurological: Reports: Other ([place] shaky) Psychiatric: Reports: No Symptoms Hematologic/Lymphatic: Reports: No Symptoms ED EXAM, GENERAL - Physical Exam Exam: See Below Exam Limited By: No Limitations General Appearance: Alert, WD/WN, No Apparent Distress Eye Exam: Bilateral Eye: Normal Inspection Ears: Normal External Exam Nose: Normal Inspection Throat/Mouth: Normal Lips, Normal Voice, No Airway Compromise Head: Normocephalic Neck: Supple Respiratory/Chest: No Respiratory Distress, Lungs Clear, Normal Breath Sounds Cardiovascular: Regular Rate, Rhythm, No Murmur GI/Abdominal: Soft, Non-Tender Back Exam: Full Range of Motion Extremities: Normal Inspection, Normal Range of Motion Neurological: Alert, Oriented Psychiatric: Normal Mood, Flat Affect Skin Exam: Warm, Dry EKG INTERPRETATION EKG Date: 11/24/19 Time: 05:00 EKG Interpretation Comments: EKG shows a normal sinus rhythm rate of 77, there are no acute ST or T wave changes or elevation, there is no ischemia noted. Course - Vital Signs Last Recorded V/S: Last Vital Signs Temp 97.8 F 11/24/19 04:53 Pulse 70 11/24/19 04:53 Resp 18 11/24/19 04:53 BP 146/93 H 11/24/19 04:53 Pulse Ox 97 11/24/19 04:53 - Orders/Labs/Meds Orders: Active Orders 24 hr Category Date Time Status EKG 12 Lead [EKG Documentation Completion] [RC] STAT Care 11/24/19 04:59 Active Labs: Laboratory Tests 11/24/19 Range/Units 05:10 Troponin I < 0.017 (0.00-0.056) ng/mL Meds: Medications Discontinued Medications Generic Name Dose Route Start Last Admin Trade Name Hayden PRChuck Reason Stop Dose Admin Lorazepam 1 mg 11/24/19 04:59 11/24/19 05:13 Ativan PO 11/24/19 05:00 1 mg ONETIME ONE Administration - Re-Assessments/Exams Free Text/Narrative Re-Assessment/Exam: 11/24/19 06:19 I spoke to the patient regarding the EKG and negative troponin. Departure - Departure Time of Disposition: 06:20 Disposition: Home, Self-Care 01 Condition: Fair Clinical Impression: Generalized anxiety disorder, Panic attack - Discharge Information *PRESCRIPTION DRUG MONITORING PROGRAM REVIEWED*: Not Applicable *COPY OF PRESCRIPTION DRUG MONITORING REPORT IN PATIENT RUTHY: Not Applicable Instructions: Panic Attack, [id number], Generalized Anxiety Disorder, Adult, Living With Anxiety Referrals: Joselyn Gu NP [Primary Care Provider] - Forms: ED Department Discharge Additional Instructions: Follow-up with your primary care provider this coming week, you need to have your medications adjusted again, return to the ER as needed Sepsis Event Note - Evaluation Sepsis Screening Result: No Definite Risk - Focused Exam Vital Signs: Vital Signs Temp Pulse Resp BP Pulse Ox 11/24/19 04:53 97.8 F 70 18 146/93 H 97 Date Exam was Performed: 11/24/19 Time Exam was Performed: 06:19 - My Orders Last 24 Hours: My Active Orders 11/24/19 04:59 EKG 12 Lead [EKG Documentation Completion] [RC] STAT - Assessment/Plan Last 24 Hours: My Active Orders 11/24/19 04:59 EKG 12 Lead [EKG Documentation Completion] [RC] STAT
[2019-11-24] MEDS ORDERED: LORazepam 1 MG Tab PO ONE (04:59)
[2019-11-24 06:34] VITALS: BP 137/82; PULSE 66
== END 2019-11-24 06:30 | disposition home or self-care (01) ==
LOC: JD.ED 04:48
DX: F41.0 Panic disorder [episodic paroxysmal anxiety] (principal); F41.1 Generalized anxiety disorder; I10 Essential (primary) hypertension; Z79.899 Other long term (current) drug therapy
CPT/HCPCS: 36415; 84484; 93005; 99285; A9270; 93010; 99283